=== PATIENT | male | born 1980 | race African-American/Black ===

== ENCOUNTER 2016-04-05 21:27 | Emergency (ER) | payer SELFPAY ==
[~2016-04-05] VITALS: Ht 193 cm; Wt 116.0 kg
[~2016-04-05 21:27] MED LIST: POLY10O EACH EYE
[2016-04-05 21:30] VITALS: BP 160/96; PULSE 98; RESP 22; TEMP 98.1; O2SAT 96
[2016-04-05] MEDS ORDERED: predniSONE 20 MG TAB PO ONE (22:15)
[2016-04-05] MEDS: RESP: ALBUTEROL 2.5 MG/IPRATROPIUM 0.5 MG NEB (SCH) INH (22:19)
--- NOTE | 2016-04-05 22:32 | PD ---
HPI Chief Complaint: Respiratory Symptoms Time Seen by Provider: 22:29 Travel History International Travel<30 days: No Contact w/Intl Traveler<30days: No Traveled to known affect area: No History of Present Illness HPI 35-year-old black male presents emergency Department with complaints of shortness of breath with exacerbation of asthma. LOCATION: Chest QUALITY: Sharp SEVERITY: Severe TIMING: Constant but worsening DURATION: Today CONTACTS: Nonpalpable MODIFYING FACTORS: Cough and exertion. Out of his albuterol. ASSOCIATED TIME AND SYMPTOMS: Positive shortness of breath, wheezing. No fever chills. No ear pain or sore throat. No nausea vomiting. PFSH Past Medical History Asthma: Yes Diminished Hearing: No Tetanus Vaccination: Unknown Influenza Vaccination: No Past Surgical History Surgical History: No Previous Surgery Social History Alcohol Use: No Tobacco Use: No Substance Use: No Allergies-Medications (Allergen,Severity, Reaction): Coded Allergies: No Known Allergies (Unverified , 04/05/16) Reported Meds & Prescriptions Reported Meds & Active Scripts Active No Active Prescriptions or Reported Medications Review of Systems Except as stated in HPI: all other systems reviewed are Neg Physical Exam Narrative GENERAL: Well-developed, well-nourished in no mild respiratory distress. Nontoxic appearing. HEAD: Normocephalic, atraumatic. EYES: Pupils equal round and reactive. Extraocular motions intact. No scleral icterus. No injection or drainage. ENT: Nose clear. Throat without erythema, tonsillar hypertrophy or exudate. Uvula midline. Airway patent. NECK: Trachea midline. Supple, nontender, moves head freely. No central bony tenderness or spasm. CARDIOVASCULAR: Regular rate and rhythm without murmurs, gallops, or rubs. RESPIRATORY: Expiratory wheezes. No Rales. No rhonchi. Speaks in 3-4 word sentences GASTROINTESTINAL: Abdomen soft, non-tender, nondistended. No hepato-splenomegaly , or palpable masses. No guarding. EXTREMITIES: No clubbing, cyanosis, or edema. No joint tenderness. BACK: Nontender without deformity. No flank tenderness. NEUROLOGICAL: Awake, alert and oriented x 3 .Cranial nerves grossly intact. Motor and sensory grossly within normal limits. Normal speech. Data Data Last Documented VS Vital Signs Date Time Temp Pulse Resp B/P Pulse Ox O2 Delivery O2 Flow Rate FiO2 04/05/16 21:59 24 Room Air 04/05/16 21:30 98.1 98 160/96 96 Orders Prednisone (Deltasone) (04/05/16 22:15) Albuterol-Ipratropium Neb (Duoneb Neb) (04/05/16 22:15) MDM Medical Decision Making Medical Screen Exam Complete: Yes Emergency Medical Condition: Yes Medical Record Reviewed: Yes Differential Diagnosis MDM: High Differential diagnoses: Pneumonia, bronchitis, URI, asthma, RAD, legionnaire's disease, SARS, ARDS, influenza, bronchiolitis, RSV,PE,CHF Narrative Course Patient's given 100 mg of prednisone and 2 DuoNeb times. The patient's reexamined. He is feeling much improved. His wheezing is nearly resolved. This acute exacerbation of asthma Diagnosis Primary Impression: Acute asthma exacerbation Qualified Code: J45.21 - Mild intermittent asthma with acute exacerbation Patient Instructions: General Instructions Additional Instructions: Rest. Increase fluids. Tylenol and Advil. Robitussin-DM. prednisone, and albuterol. Followup with your Dr. in one week. Return to the ER for any problems. Med/Other Pt SpecificInfo: Prescription(s) given Scripts No Active Prescriptions or Reported Meds Disposition: 01 DISCHARGE HOME Condition: Stable Stephon Saldivar Apr 05, 2016 22:32
[2016-04-05] MEDS ORDERED: ALBU6.7H INH (22:33)
[2016-04-05] MEDS ORDERED: PRED-503 PO (22:33)
== END 2016-04-05 22:58 | disposition home or self-care (01) ==
LOC: NEPB 21:27
DX: J45.21 Mild intermittent asthma with (acute) exacerbation (principal)
CPT/HCPCS: 94640; 94664; 99283; J7512